=== PATIENT | female | born 1970 | race Caucasian/White ===

== ENCOUNTER 2016-07-11 13:53 | Emergency (ER) | payer MEDICAID ==
[2016-07-11 14:03] VITALS: BMI 27.4
[2016-07-11 14:13] VITALS: RESP 16; TEMP 98.2; O2SAT 100
[2016-07-11] MEDS ORDERED: Oxycodone/Acetaminophen 5/325 mg Tab PO STA (15:05)
--- NOTE | 2016-07-11 15:05 | ED PDOC ---
Arrival/HPI - General Chief Complaint: Back Pain Time Seen by Provider: 07/11/16 14:59 Historian: Patient - History of Present Illness Narrative History of Present Illness (Text): 07/11/16 15:37 45-year-old female presents today with a 2 day history of right-sided breast pain radiating to the back. Patient states she has a burning sensation along the right side of the breast and pain radiates towards the back wrapping around the side. Patient states she has erythematous rash along the right breast as well as the right upper back. Denies fevers or chills. No chest pain or shortness of breath. No sick contacts. No other complaints Past Medical History - Provider Review Nursing Documentation Reviewed: Yes - Travel History Have you recently traveled outside [place] w/in the past 3 mons?: No - Tetanus Immunization Tetanus Immunization: Unknown - Psychiatric Hx Substance Use: No - Surgical History Hx Cholecystectomy: Yes Family/Social History - Physician Review Nursing Documentation Reviewed: Yes Family/Social History: Unknown Family HX Smoking Status: Never Smoked Hx Alcohol Use: No Hx Substance Use: No Allergies/Home Meds Allergies/Adverse Reactions: Allergies No Known Allergies Allergy (Verified 07/11/16 14:02) Review of Systems - Review of Systems Constitutional: absent: Fatigue, Fevers Respiratory: absent: SOB, Cough Cardiovascular: absent: Chest Pain, Palpitations Gastrointestinal: absent: Abdominal Pain, Nausea, Vomiting Genitourinary Female: absent: Dysuria Musculoskeletal: Arthralgias. absent: Back Pain, Neck Pain Skin: Rash. absent: Pruritis Neurological: absent: Headache, Dizziness Physical Exam Vital Signs Reviewed: Yes Vital Signs Temp Pulse Resp BP Pulse Ox 07/11/16 14:12 98.2 F 82 16 125/63 100 Temperature: Afebrile Blood Pressure: Normal Pulse: Regular Respiratory Rate: Normal Appearance: Positive for: Well-Appearing, Non-Toxic, Comfortable Pain Distress: None Mental Status: Positive for: Alert and Oriented X 3 - Systems Exam Head: Present: Atraumatic Respiratory/Chest: Present: Clear to Auscultation, Good Air Exchange, Tender to Palpation (tenderness along the T3 dermatome). No: Respiratory Distress, Accessory Muscle Use Cardiovascular: Present: Regular Rate and Rhythm, Normal S1, S2. No: Murmurs Skin: Present: Warm, Dry, Rashes (vesicles on an erythematous base in clusters noted to right breast and right upper back along the T3 dermatome) Psychiatric: Present: Alert, Oriented x 3 Medical Decision Making ED Course and Treatment: 07/11/16 15:40 Patient nontoxic well-appearing no distress with a 2 day history of rash to the right chest and back Rashes consistent with shingles along the T3 dermatome Toradol, Percocet, Valtrex given by mouth I discussed the findings and after the patient advised avoiding women and children. I've advised follow-up with the primary care physician. I advised taking medications as prescribed. Patient verbalizes understanding of discharge instructions and need for immediate followup. Impression: Shingles Motrin every 6 hours as needed for pain Percocet 1 tablet every 6 hours as needed for moderate to severe pain: May cause drowsiness Valtrex 1 tablet 3 times daily 7 days Follow-up the primary care physician within the next 2 days Return if symptoms worsen persist or if new concerning symptoms develop - Medication Orders Current Medication Orders: Discontinued Medications Ketorolac Tromethamine (Toradol) 60 mg IM STAT STA Stop: 07/11/16 15:06 Last Admin: 07/11/16 15:29 Dose: 60 MG IM Administration Charges Document 07/11/16 15:29 HI (Rec: 07/11/16 15:29 [id number]) Injection Site MAR Injection Site Right Gluteus Vikash Charges for Administration # of IM Administrations 1 Oxycodone/Acetaminophen (Percocet 5/325 Mg Tab) 1 tab PO STAT STA Stop: 07/11/16 15:06 Last Admin: 07/11/16 15:28 Dose: 1 TAB Valacyclovir HCl (Valtrex) 1 gm PO STAT STA PRN Reason: Protocol Stop: 07/11/16 15:06 Last Admin: 07/11/16 15:29 Dose: 1 GM Disposition/Present on Arrival - Present on Arrival Any Indicators Present on Arrival: No History of DVT/PE: No History of Uncontrolled Diabetes: No Urinary Catheter: No History of Decub. Ulcer: No History Surgical Site Infection Following: None - Disposition Have Diagnosis and Disposition been Completed?: Yes Diagnosis: Shingles Disposition: HOME/ ROUTINE Disposition Time: 15:05 Patient Plan: Discharge Patient Problems: Current Active Problems Problem Status Diagnosed Shingles Acute Condition: GOOD Discharge Instructions (ExitCare): Shingles (ED) Additional Instructions: Motrin every 6 hours as needed for pain Percocet 1 tablet every 6 hours as needed for moderate to severe pain: May cause drowsiness Valtrex 1 tablet 3 times daily 7 days Follow-up the primary care physician within the next 2 days Return if symptoms worsen persist or if new concerning symptoms develop Prescriptions: Ibuprofen [Motrin] 600 mg PO Q6H PRN #20 tab PRN Reason: pain/fever reduction oxyCODONE/Acetaminophen [Percocet 5/325 mg Tab] 1 tab PO Q6H PRN #10 tab PRN Reason: moderate to severe pain valACYclovir [Valtrex] 1 gm PO TID #21 tab Forms: WORK NOTE
[2016-07-11 15:55] VITALS: BP 124/70; PULSE 80
== END 2016-07-11 15:56 | disposition home or self-care (01) ==
LOC: ED 13:53
DX: B02.9 Zoster without complications (principal)
CPT/HCPCS: 96372; 99283; J1885